=== PATIENT | female | born 1985 | race Caucasian/White ===

== ENCOUNTER 2017-11-07 12:17 | Outpatient (CLI) | payer OTHER ==
--- NOTE | 2017-11-07 14:57 | Ultrasound Report ---
Procedure Date: 11/07/2017 Accession Number: [id number] / [id number] Procedure: US - Abdomen Limited CPT Code: FULL RESULT: EXAM: ABDOMEN ULTRASOUND LIMITED, RUQ EXAM DATE: 11/07/2017 01:32 PM. CLINICAL HISTORY: ACUTE RIGHT UPPER QUADRANT PAIN. COMPARISON: None. TECHNIQUE: Real-time scanning was performed with static images obtained. FINDINGS: Liver: Normal in size and echotexture. 14.3 cm. Main portal vein flow: Hepatopetal. Gallbladder: Normal. No stones, wall thickening, or sonographic Linn's sign. Biliary System: CBD measures 4 mm. No intrahepatic or extrahepatic ductal dilatation. Other: Gravid uterus with heart rate measuring 148 bpm IMPRESSION: 1. No cholelithiasis or cholecystitis. 2. Gravid uterus RADIA
== END 2017-11-07 12:18 | disposition home or self-care (01) ==
LOC: DI 12:17
PROVIDERS: ATTEND Midwife
DX: R10.10 Upper abdominal pain, unspecified (principal)
CPT/HCPCS: 76705